=== PATIENT | male | born 1960 | race Caucasian/White ===

== ENCOUNTER 2024-04-23 19:05 | Emergency (ER) | payer OTHER, SELFPAY ==
[2024-04-23] VITALS (21 sets, daily range): BP systolic 101–127; BP diastolic 67–79; PULSE 71–82; TEMP 37.4; O2SAT 89–95; BMI 39.5
--- NOTE | 2024-04-23 19:23 | ECG_ITS ---
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
--- NOTE | 2024-04-23 19:31 | ECG_ITS ---
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 Repeat ECG is requested 9152 abnormal ECG No previous ECG available for comparison
--- NOTE | 2024-04-23 19:32 | ED_ITS ---
HPI HPI - General Adult General Chief complaint: Weakness Stated complaint: general weakness Time Seen by Provider: 04/23/24 19:27 Source: patient Mode of arrival: walk-in Limitations: no limitations History of Present Illness HPI narrative: 63-year-old male presents to the emergency department for feeling weak and dizzy. It started 3 days ago when he was working outside all day doing multiple projects and it was hot outside. He states he was drenched in sweat and since then he has been a bit dizzy. On that day his arms were tingly bilaterally but that has now resolved and has not recurred. No headache chest pain shortness of breath or palpitations or syncope. He is on a diuretic, Lasix. Related Data Home Medications ?Medication ?Instructions ?Recorded ?Confirmed amiodarone 200 mg tablet 200 mg PO DAILY 04/23/24 04/23/24 atorvastatin 80 mg tablet 80 mg PO DAILY 04/23/24 04/23/24 carvedilol 6.25 mg tablet 6.25 mg PO Q12H 04/23/24 04/23/24 clopidogrel 75 mg tablet 75 mg PO DAILY 04/23/24 04/23/24 furosemide 20 mg tablet 20 mg PO DAILY 04/23/24 04/23/24 losartan 50 mg tablet 50 mg PO DAILY 04/23/24 04/23/24 potassium chloride 20 mEq 20 meq PO DAILY 04/23/24 04/23/24 tablet,extended release rivaroxaban 20 mg tablet (Xarelto) 20 mg PO DAILY 04/23/24 04/23/24 Allergies Allergy/AdvReac Type Severity Reaction Status Date / Time No Known Drug Allergies Allergy Verified 04/23/24 19:17 Opioid HPI Opioid Management Most Recent Opioid Data: No Data to Display Review of Systems ROS0 Narrative A ten point review of systems is negative except as noted above. Exam Narrative Exam Narrative: Nurses note and vital signs reviewed and patient is not hypoxic. General: The patient appears in no apparent distress. Patient is resting comfortably on cart. Skin: Warm, dry, no pallor noted. There is no rash noted. Head: Normocephalic, atraumatic Eye: Normal conjunctiva, no drainage Ears, Nose, Mouth, and Throat: oral mucosa is moist. Nares patent. Cardiovascular: Regular Rate and Rhythm Respiratory: Patient is in no distress, no accessory muscle use, lungs are clear to auscultation, no wheezing, rales or rhonchi Back: non-tender GI: Soft and nontender Musculoskeletal: The patient has no evidence of calf tenderness, no pitting edema, symmetrical pulses noted bilaterally Neurological: A&O, normal speech Psychiatric: Cooperative Constitutional Vital Signs, click to edit/add: Last Vital Signs Temp 99.4 F 04/23/24 19:19 Pulse 75 04/23/24 19:19 Resp 20 04/23/24 19:19 BP 115/67 04/23/24 19:19 Pulse Ox 92 L 04/23/24 19:19 O2 Del Method Room Air 04/23/24 19:19 Course Vital Signs Vital signs: Vital Signs Temperature 99.4 F 04/23/24 19:19 Pulse Rate 75 04/23/24 19:19 Respiratory Rate 20 04/23/24 19:19 Blood Pressure 115/67 04/23/24 19:19 Pulse Oximetry 92 L 04/23/24 19:19 Oxygen Delivery Method Room Air 04/23/24 19:19 Temperature 99.4 F 04/23/24 19:19 Pulse Rate 75 04/23/24 19:19 Respiratory Rate 20 04/23/24 19:19 Blood Pressure 115/67 04/23/24 19:19 Pulse Oximetry 92 L 04/23/24 19:19 Oxygen Delivery Method Room Air 04/23/24 19:19 Medical Decision Making MDM Narrative Medical decision making narrative: Troponin is elevated at 18,721. I have spoken to the patient's chef saucier as well as the hospitalist at [facility] and the patient will be transferred there. Since the patient took his Xarelto already today the chef saucier has requested no heparin drip at this point. He was given an aspirin here and continues to be symptom-free other than feeling weak. He has no chest pain or shortness of breath or back pain. Findings are discussed thoroughly with the patient and his family. Differential Diagnosis Differential Diagnosis: Dehydration, ID, NSTEMI, anemia Lab Data Lab results reviewed: Yes I reviewed the patient's lab results Labs: Lab Results 04/23/24 Range/Units 19:36 WBC 9.9 (4.0-11.0) 10^3/uL RBC 4.72 (4.70-6.10) 10^6/uL Hgb 13.8 L (14.0-18.0) g/dL Hct 42.5 (42.0-54.0) % MCV 90.0 (80.0-94.0) fL MCH 29.2 (25.9-34.0) pg MCHC 32.5 (29.9-35.2) g/dL RDW 13.0 (11.0-15.0) % Plt Count 206 (150-450) 10^3/uL MPV 11.3 (9.5-13.5) fL Neut % (Auto) 67.8 (43.0-75.0) % Lymph % (Auto) 17.7 L (20.5-60.0) % Knox % (Auto) 12.7 H (1.7-12.0) % Eos % (Auto) 1.1 (0.9-7.0) % Baso % (Auto) 0.4 (0.2-2.0) % Neut # (Auto) 6.7 H (1.4-6.5) 10^3/uL Lymph # (Auto) 1.8 (1.2-3.8) 10^3/uL Knox # (Auto) 1.3 H (0.3-0.8) 10^3/uL Eos # (Auto) 0.1 (0.0-0.7) 10^3/uL Baso # (Auto) 0.0 (0.0-0.1) 10^3/uL Abs Immat Gran (auto) 0.03 (0.00-0.03) 10^3/uL Imm/Tot Granulo (auto) 0.3 (0.0-0.5) % Sodium 139 (136-145) mmol/L Potassium 3.9 (3.5-5.1) mmol/L Chloride 105 (98-107) mmol/L Carbon Dioxide 27.2 (21.0-32.0) mmol/L Anion Gap 10.7 BUN 22.0 H (7.0-18.0) mg/dL Creatinine 1.51 H (0.70-1.30) mg/dL Est GFR ( Amer) 57 L (>=60) Est GFR (Non-Af Amer) 47 L (>=60) BUN/Creatinine Ratio 14.6 Glucose 108 H (74-106) mg/dL Calcium 8.4 L (8.5-10.1) mg/dL Troponin I High Sens 70518.5 H* (4.0-76.1) pg/mL ECG Data Attestation: I personally reviewed and interpreted this ECG as follows: (EKG on my interpretation shows normal sinus rhythm with a left bundle branch block. The most recent EKG we have for him in the past is from 2019 and at that time he did not have a left bundle branch block.) Critical Care Time Critical Care Time Critical Care Time: Yes Total Critical Care Time: 35 Attestation: Due to the high probability of sudden and clinically significant deterioration in the patient's condition he/she required the highest level of my preparedness to intervene urgently I provided critical care time including documentation time, medication orders and management, reevaluation, vital sign assessment, ordering and reviewing of lab tests, ordering and reviewing of x-ray studies, and admission orders. Aggregate critical care time is 35 minutes including only time during which I was engaged in work directly related to his/her care and did not include time spent treating other patients simultaneously. Discharge Plan Discharge Chief Complaint: Weakness Clinical Impression: Non-ST elevation ID (NSTEMI) Patient Disposition: [facility] Time of Disposition Decision: 20:38 Discharge location: [facility] Condition: [facility] Mode of Transportation: EMS
[2024-04-23 19:43] LABS: Basophils Percent Auto 0.4 % (0.2-2.0); Eosinophils Absolute Auto 0.1 10^3/uL (0.0-0.7); Eosinophils Percent Auto 1.1 % (0.9-7.0); Hematocrit 42.5 % (42.0-54.0); Hemoglobin 13.8 g/dL (14.0-18.0); Immature Granulocytes Abs Auto 0.03 10^3/uL (0.00-0.03); Immature Granulocytes Pct Auto 0.3 % (0.0-0.5); Lymphocytes Absolute Auto 1.8 10^3/uL (1.2-3.8); Lymphocytes Percent Auto 17.7 % (20.5-60.0); Mean Corpuscular HGB Conc 32.5 g/dL (29.9-35.2); Mean Corpuscular Hemoglobin 29.2 pg (25.9-34.0); Mean Platelet Volume 11.3 fL (9.5-13.5); Monocytes Absolute Auto 1.3 10^3/uL (0.3-0.8); Monocytes Percent Auto 12.7 % (1.7-12.0); Neutrophils Absolute Auto 6.7 10^3/uL (1.4-6.5); Neutrophils Percent Auto 67.8 % (43.0-75.0); Platelet Count 206 10^3/uL (150-450); Red Blood Count 4.72 10^6/uL (4.70-6.10); White Blood Count 9.9 10^3/uL (4.0-11.0)
[2024-04-23] MEDS: 0.9 % SODIUM CHLORIDE 500 ML IV (19:44)
[2024-04-23 20:04] LABS: Anion Gap 10.7; BUN Creatinine Ratio 14.6; Calcium 8.4 mg/dL (8.5-10.1); Carbon Dioxide 27.2 mmol/L (21.0-32.0); Chloride 105 mmol/L (98-107); Estimated GFR (African America 57 (>=60); Estimated GFR (Non-African Ame 47 (>=60); Glucose 108 mg/dL (74-106); Potassium 3.9 mmol/L (3.5-5.1); Sodium 139 mmol/L (136-145)
[2024-04-23 20:12] LABS: Troponin I High Sensitivity 18721.5 pg/mL (4.0-76.1)
[2024-04-23] MEDS: ASPIRIN 81 MG TAB.CHEW PO (21:03)
--- NOTE | 2024-04-23 22:35 | PC.NURSE ---
[facility] arrives at this time for transport.
== END 2024-04-23 22:37 | disposition short-term general hospital (02) ==
PROVIDERS: Emergency Provider Emergency Medicine; PCP Nurse Practitioner
DX: I21.4 Non-ST elevation (NSTEMI) myocardial infarction (principal); Z79.899 Other long term (current) drug therapy; Z79.01 Long term (current) use of anticoagulants
CPT/HCPCS: 36415; 80048; 81001; 84484; 85025; 93005; 99285

== ENCOUNTER 2025-07-25 05:39 | Emergency (ER) | payer BC, SELFPAY ==
--- OUTSIDE RECORDS SUMMARY | 2025-07-12 16:30 | XMS_ITS | Encounter Summary ---
Author Organization [facility] Address [address] [place] [address] Care Team Providers Care Program Production Specialist Name Role Phone Maisha Echavarria MD Primary Care Provider Arlen Sanchez NP Unavailable [phone] Areln Sanchez NP Unavailable [phone] Reason for Visit * ReasonCommentsGI Bleeding Encounter Details DateTypeDepartmentCare Team (Latest Contact Info)Bcuyoswedbf82/10/2025 4:30 PM EDTOffice Visit [facility] [address] [place] [phone] Arlen Sanchez NP [address], [place] [id number] Blood in stool (Primary Dx); Diarrhea, unspecified type; Hemorrhoids, unspecified hemorrhoid type Social History Tobacco UseTypesPacks/DayYears UsedDateSmoking Tobacco: FormerCigarsSmokeless Tobacco: Never Tobacco Cessation:Counseling Given: Not Answered Alcohol UseStandard Drinks/WeekCommentsNot Currently1 (1 standard drink = 0.6 oz pure alcohol)PHQ-2AnswerDate RecordedPatient Health Questionnaire-2 Score0 03/01/2025Sex and Gender InformationValueDate RecordedSex Assigned at BirthNot on fileLegal HyjSxmb7810/28/2023 9:45 AM ESTGender IdentityNot on fileSexual OrientationNot on filedocumented as of this encounter Last Filed Vital Signs Vital SignReadingTime TakenCommentsBlood Ediraodz075/8410 3:38 PM EDT Xklpe5507 3:38 PM EDTTemperature--Respiratory Vqyc8873 3:38 PM EDTOxygen Bzjtgrbzfy41%07/12/2025 3:38 PM EDTInhaled Oxygen Concentration-- Alnrvv743 kg (265 lb)07/12/2025 3:38 PM QLTTlldxb570.3 cm (5' 9 )07/12/2025 3:38 PM EDTBody Mass Index39.131 3:38 PM EDTdocumented in this encounter Progress Notes * Arlen Sanchez NP - 07/12/2025 4:30 PM EDT Subjective ?Quick Links Last Note in Specialty Snapshot Edit RFV/CC Edit Screenings Current Meds Patient ID: Aayush Cantu is a 64 y.o. male who presents for GI Bleeding. HPI History of Present Illness The patient presents for evaluation of rectal bleeding. He has been experiencing significant bleeding rectal bleeding for over a month. He reports having hemorrhoids as well. Initially, a cream treatment provided relief of the hemorrhoids for approximately two weeks, but upon discontinuation, the symptoms returned and have persisted. He has been using asalve, but it has not been effective in alleviating the symptoms. Bowel movements have been inconsistent, alternating between normal, solid stools and watery stools with blood. The blood is dark in color and mixed with the stool. He reports no presence of black tarry stools. Over the past few weeks, he has noticed a change in the smell of his stools, describing it as similar to ammonia. He has had accidents in his truck due to an inability to reach a bathroom in time. Stool softeners are taken every other day to manage constipation. He experiences more constipation than diarrhea and often hasto strain during bowel movements, which can sometimes cause a burning sensation. Stools vary in consistency, being liquefied on some days and normal on others. He does not feel ill and reports no abdominal pain. Dietary changes have been made to identify potential triggers for diarrhea, including switching iced tea, milk, and soda brands. He believes the iced tea may be contributing to his symptoms, as switching brands seems to have lessened the severity of his diarrhea. He has not experienced diarrhea for the past four days. Social History: Diet: Switched iced tea, milk, and soda brands to identify potential triggers for diarrhea. Coffee/Tea/Caffeine-containing Drinks: Consumes iced tea. ?Quick Review Review Full History Meds - atorvastatin (Lipitor) 80 MG tablet clopidogrel (Plavix) 75 MG tablet furosemide (Lasix) 40 MG tablet hydrocortisone (Anusol-HC) 2.5 % rectal cream losartan (Cozaar) 50 MG tablet potassium chloride CR (K-Tab) 20 MEQ ER tablet Xarelto 20 MG tablet carvedilol (Coreg) 6.25 MG tablet pramoxine (Proctofoam) 1 % foam --- PMH - Anxiety CAD (coronary artery disease) Clotting disorder ([facility]) DVT (deep venous thrombosis) ([facility]) Hyperlipidemia Hypertension NSTEMI (non-ST elevated myocardial infarction) ([facility]) PE (pulmonary thromboembolism) ([facility]) Objective ?Quick Links Add Vitals Timeline (Adult) Labs Imaging Results Review Trend Vitals ?? Avoid pulling in long tables of results. Comment on relevant results to support your medical decision making. BP 130/84 Pulse 78 Resp 18 Ht 5' 9 Wt 265 lb SpO2 99% BMI 39.13 kg/m?? Physical Exam Vitals and nursing note reviewed. Constitutional: Appearance: Normal appearance. HENT: Head: Normocephalic and atraumatic. Cardiovascular: Rate and Rhythm: Normal rate and regular rhythm. Heart sounds: Normal heart sounds. Pulmonary: Effort: Pulmonary effort is normal. No respiratory distress. Breath sounds: Normal breath sounds. No stridor. No wheezing, rhonchi or rales. Abdominal: General: Bowel sounds are normal. There is no distension. Palpations: Abdomen is soft. There is no mass. Tenderness: There is no abdominal tenderness. Hernia: No hernia is present. Genitourinary: Rectum: External hemorrhoid present. No anal fissure. Skin: General: Skin is warm and dry. Neurological: General: No focal deficit present. Mental Status: He is alert and oriented to person, place, and time. Psychiatric: Mood and Affect: Mood normal. Behavior: Behavior normal. Physical Exam Respiratory: Clear to auscultation, no wheezing, rales or rhonchi Cardiovascular: Regular rate and rhythm, no murmurs, rubs, or gallops Gastrointestinal: Soft, no tenderness, no distention, no masses Genitourinary: External hemorrhoids present, no active bleeding ?Quick Links Full Problem List Cardiology CHF Hypertension Assessment & Plan Blood in stool Orders: CBC and differential; Future Occult blood x 1, stool; Future Referral to Dr. Mccloud, general surgery, will be placed depending on stool specimen. Diarrhea, unspecified type Orders: CBC and differential; Future Comprehensive metabolic panel; Future Hemorrhoids, unspecified hemorrhoid type Orders: pramoxine (Proctofoam) 1 % foam; Insert into the rectum 3 (three) times a day as needed for hemorrhoids for up to 10 days Assessment & Plan 1. Hemorrhoids: - The patient reports blood in the stool, which has been ongoing for over a month. The blood is darker in color, suggesting an internal source. - Physical examination reveals the presence of hemorrhoids, but no active bleeding was noted. - Blood work, including a CBC, will be ordered to check hemoglobin levels. A stool specimen will becollected for further analysis. The possibility of irritable bowel syndrome (IBS) was discussed dueto alternating constipation and diarrhea. - MiraLAX is recommended to alleviate constipation, and Metamucil is suggested to bulk up the stool. Proctofoam will be prescribed for hemorrhoid management. Referral to general surgery for a colonoscopy may be necessary depending on the results of the blood work and stool sample. documented in this encounter Plan of Treatment Not on file documented as of this encounter Procedures Procedure NamePriorityDate/TimeAssociated DiagnosisCommentsOCCULT BLOOD X 1, IOJFXCpcqybx64/14/2025 12:08 PM EDT Blood in stool CBC (INCLUDES DIFF/PLT)Peuphhd4607/12/2025 4:18 PM EDT Blood in stool Diarrhea, unspecified type COMPREHENSIVE METABOLIC TJLMVZnmyzey86/10/2025 4:18 PM EDT Diarrhea, unspecified type documented in this encounter Results * (ABNORMAL) Occult blood x 1, stool (07/16/2025 12:08 PM EDT)ComponentValueRef RangeTest MethodAnalysis TimePerformed AtPathologist SignatureMICRO NUMBER [id number] QUALITYAdequateQUESTSOURCEINSURE (TM) FOBT TEST CARD QUESTSTATUSFINALQUESTFECAL GLOBIN RESULTSEE NOTE(A)QUESTComment: Detected Reference Range:Not Detected COMMENTSEE NOTEQUESTComment: NOTE: Approved collection includes sample of toilet water adjacent to stool. Other methods of collection such as stool transferred from diaper, bedpan, or commode to toilet water may lead to inaccurate results. NO COLLECTION DATE RECEIVED. WE HAVE USED THE DATE THE SPECIMEN WAS RECEIVED BY THIS LABORATORY THE COLLECTION DATE. IF THIS IS INCORRECT, PLEASE CONTACT CLIENT SERVICES. PHONE NUMBER: [phone] Specimen (Source)Anatomical Location / LateralityCollection Method / Volume Collection TimeReceived TimeStoolRectal contents / Xtzeayg3207/15/2025 12:50 PM EDT Narrative Resulting Agency Comment Performing Organization Information ?Site ID: QPT ?Name: [facility] ?Address: [address] [place] [address], [address] [place] [phone] ?Director: Leroy Vo MD Authorizing ProviderResult TypeResult StatusBreann Majors NPLAB BODY FLUIDS AND STOOLS ORDERABLESFinal ResultPerforming OrganizationAddressCity/State/ZIP Code Phone Number [facility] * Comprehensive metabolic panel (07/12/2025 4:18 PM EDT)ComponentValueRef Range Test MethodAnalysis TimePerformed AtPathologist VpurywxxnGfdnzok6130 - 99 mg/dLQUESTComment: ? Fasting reference interval JMG953 - 25 mg/dLQUESTCreatinine1.280.70 - 1.35 mg/vEDQTHRTRCD11> OR = 60 mL/min/1.37r1IJCEYJWW/CREATININE RATIOSEE NOTE: (calc)QUESTComment: ?? Not Reported: BUN and Creatinine are within ?? reference range. ? Rtxgbf110775 - 146 mmol/LQUESTPotassium, Bld4.43.5 - 5.3 mmol/CNCNRKUzoosxwy398 98 - 110 mmol/LQUESTCarbon Mspibcn0822 - 32 mmol/LQUESTCalcium8.88.6 - 10.3 mg/dLQUESTPROTEIN, TOTAL6.96.1 - 8.1 g/dLQUESTALBUMIN4.33.6 - 5.1 g/dLQUEST GLOBULIN2.61.9 - 3.7 g/dL (calc)QUESTALBUMIN/GLOBULIN RATIO1.71.0 - 2.5 (calc) QUESTBILIRUBIN, TOTAL0.50.2 - 1.2 mg/dLQUESTALKALINE TNTILXPUTEW4763 - 144 U/L FEMBFPKE2846 - 35 U/KSAQJNBFI502 - 46 U/LQUESTSpecimen (Source)Anatomical Location / LateralityCollection Method / VolumeCollection TimeReceived TimeBlood Venous blood specimen / Rtifrjm0907/12/2025 4:18 PM EDT1 4:18 PM EDT Narrative [facility] - 07/13/2025 6:21 AM EDT COLLECTION KIT GIVEN TO PATIENT. PATIENT ADVISED TO RETURN. Resulting Agency Comment Performing Organization Information ?Site ID: QPT ?Name: [facility] ?Address: [address] [place] [address], [address] [place] [phone] ?Director: Leroy Vo MD Authorizing ProviderResult TypeResult StatusBreann Majors NPLAB BLOOD ORDERABLES Final ResultPerforming OrganizationAddressCity/State/ZIP CodePhone Number [facility] * (ABNORMAL) CBC and differential (07/12/2025 4:18 PM EDT)ComponentValueRef RangeTest MethodAnalysis TimePerformed AtPathologist SignatureWHITE BLOOD CELL COUNT6.83.8 - 10.8 Thousand/uLQUESTRED BLOOD CELL COUNT4.19(L)4.20 - 5.80 Million/wEPJRGDHRRPHOGRGG64.3(L)13.2 - 17.1 g/sSYXEBXMEZBOSFNPS09.8(L)38.5 - 50.0 %IGEBCPWV16.880.0 - 100.0 yQTNOATSIM13.027.0 - 33.0 ilXMQQOPYRZ47.7(L) 32.0 - 36.0 g/dLQUESTComment: For adults, a slight decrease in the calculated MCHC value (in the range of 30 to 32 g/dL) is most likely not clinically significant; however, it should be interpreted with caution in correlation with other red cell parameters and the patient's clinical condition. RDW13.511.0 - 15.0 %QUESTPLATELET RGCWJ730617 - 400 Thousand/kZTVOEETVX42.17.5 - 12.5 fLQUESTABSOLUTE NEUTROPHILS4,0801,500 - 7,800 cells/uLQUESTABSOLUTE LYMPHOCYTES1,016204 - 3,900 cells/uLQUESTABSOLUTE SKUDKTHMW818138 - 950 cells/uL QUESTABSOLUTE IMNRPUUIGFO42310 - 500 cells/uLQUESTABSOLUTE WLQQZRFRS461 - 200 cells/jELZKQTMNNPUNLVDHH97%HVOYGVYALOHYOCNG42.6%QUESTMONOCYTES9.3%QUEST EOSINOPHILS3.4%QUESTBASOPHILS0.7%QUESTSpecimen (Source)Anatomical Location / LateralityCollection Method / VolumeCollection TimeReceived TimeBloodVenous blood specimen / Tnhopai5707/12/2025 4:18 PM EDT1 4:18 PM EDT Narrative [facility] - 07/13/2025 6:21 AM EDT COLLECTION KIT GIVEN TO PATIENT. PATIENT ADVISED TO RETURN. Resulting Agency Comment Performing Organization Information ?Site ID: QPT ?Name: [facility] ?Address: [address] [place] [phone] ?Director: Leroy Vo MD Authorizing ProviderResult TypeResult StatusBreliat Sanchez NPLAB BLOOD ORDERABLES Final ResultPerforming OrganizationAddressCity/State/[facility] CodePhone Number [facility] documented in this encounter Visit Diagnoses Diagnosis Blood in stool- Primary Diarrhea, unspecified type Hemorrhoids, unspecified hemorrhoid type documented in this encounter Care Teams Team MemberRelationshipSpecialtyStart DateEnd Date Maisha Echavarria MD [address] [place] [address] PCP - GeneralFamily Medicine03/01/25 Arlen Sanchez NP [address] [place] [facility] [place] [address] PCP - [facility]04/02/25 Arlen Sanchez NP [address] [place] [address] Nurse PractitionerFamily [facility]03/01/25documented as of this encounter
[2025-07-25] VITALS (32 sets, daily range): BP systolic 128–140; BP diastolic 67–84; PULSE 62; TEMP 36.6; O2SAT 85–99; BMI 39.5
--- NOTE | 2025-07-25 06:01 | CT_ITS ---
The [address] [address] Patient Name: SO MONGE MRN: [id number] date: 1960 Sex: M Assigned Patient Location: ED.MAIN Current Patient Location: ED.MAIN Accession/Order Number: [id number] Exam Date: 07/25/2025 06:35 Report Date: 07/25/2025 08:47 At the request of: THOMPSON CHASE MD Procedure: CT abdomen pelvis wo con CT ABDOMEN AND PELVIS WITHOUT CONTRAST COMPARISON: None CLINICAL DATA: Right groin pain after patient felt a pop. Spiral images were obtained through the abdomen and pelvis without contrast. This CT exam was performed using one or more following dose reduction techniques: Automated exposure control, adjustment of the mA and/or kV according to patient size, or use of iterative reconstruction technique. Limited cuts through the lung bases show minor atelectasis. The heart is borderline prominent. Assessment of the intra-abdominal organs is slightly limited by the absence of contrast. A small portion of the left lateral abdomen/pelvis is also not included due to patient size. There are calcified stones within the gallbladder lumen. No pericholecystic inflammation is identified. The liver, spleen, pancreas and adrenal glands show no acute findings. There is mild bilateral perinephric fibrofatty stranding. No renal calculi or hydronephrosis are seen. There is mild atherosclerotic plaque at the aorta and iliac arteries. No aneurysms is identified. No enlarged lymph nodes are present. No ascites is seen. The small bowel loops are normal caliber. Mild stool is visualized within the colon, greater on the right. There is subtle thoracolumbar levoscoliotic curvature and multilevel degenerative changes at the spine, greatest at the lower facets. There is also hypertrophy at the SI joints. Images through the pelvis show a tiny umbilical hernia containing fat. There are normal caliber small bowel loops. The appendix is not seen. There is stool at the distal colon. No diverticular disease is identified. The prostate is borderline prominent. No urinary bladder abnormalities are noted. There is a patulous inguinal ring on the right which contains fat. There are small benign-appearing bilateral inguinal lymph nodes. There is no ascites. CT/CT abdomen pelvis wo con IMPRESSION: CHOLELITHIASIS. NO BOWEL OR URINARY TRACT OBSTRUCTION. FAT-CONTAINING RIGHT INGUINAL HERNIA. NO ACUTE FINDINGS. Impression dictated by: Sabrina Kent M.D. 07/25/2025 8:47 AM Dictation Location: [place] [address] Electronically authenticated by: [id number] Y Date: 07/25/2025 08:47
--- NOTE | 2025-07-25 06:05 | ED.GENADUL1 ---
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 The patient states that last Tuesday he was getting out of his semi and twisted his right leg when his boot got caught in the grate/running board of the truck, he states he felt a tingle/pull in his right inguinal area at that time. The next day he and his went for a motorcycle ride. He states he had to spread his legs out pretty wide to get his leg over the bike. Tuesday when he was getting out of his truck he also felt a twinge of pain in the right hip and groin area and felt nauseated at that time. Tonight he was in the shower and felt sudden severe pain in his right inguinal area- describes it as a 'pop'. At this time he has pain in the right medial inguinal area that radiates into his right hip/flank area. He denies any blood in his urine. He is waiting to get a colonoscopy because he recently had blood in his stool. He is on Xarelto. He denies any fall. He has no weakness numbness or tingling. After getting out of the shower today he had to use a walker to ambulate due to the pain. His brought him to the emergency department. He denies any numbness or tingling. The pain is now in his right inguinal area and right testicle. He is not having any nausea or vomiting. Does not have a history of kidney stones. Related Data Home Medications ?Medication ?Instructions ?Recorded ?Confirmed amiodarone 200 mg tablet 200 mg PO DAILY 04/23/24 04/23/24 atorvastatin 80 mg tablet 80 mg PO DAILY 04/23/24 07/25/25 carvedilol 6.25 mg tablet 6.25 mg PO Q12H 04/23/24 07/25/25 clopidogrel 75 mg tablet 75 mg PO DAILY 04/23/24 07/25/25 furosemide 20 mg tablet 20 mg PO DAILY 04/23/24 07/25/25 losartan 50 mg tablet 50 mg PO DAILY 04/23/24 07/25/25 potassium chloride 20 mEq 20 meq PO DAILY 04/23/24 07/25/25 tablet,extended release rivaroxaban 20 mg tablet (Xarelto) 20 mg PO DAILY 04/23/24 07/25/25 Allergies Allergy/AdvReac Type Severity Reaction Status Date / Time No Known Drug Allergies Allergy Verified 07/25/25 05:55 Opioid HPI Opioid Management Most Recent Opioid Data: Last Pain Scale 10 Today, 06:27 Last DEC Pain Assessment Today, 06:27 Review of Systems ROS Status of ROS 10 or more systems reviewed and unremarkable except as noted in history and below PFSH PFSH Social History Little interest or pleasure in doing things: not at all Feeling down, depressed, or hopeless: not at all Exam Narrative Exam Narrative: Vital signs and Nursing Notes reviewed: Patient is afebrile with a normal pulse, normal blood pressure, he is not hypoxic with pulse ox of 97% on room air General: Awake, alert, oriented, overweight male, uncomfortable with any movement, unable to lie back greater than 45 feet due to pain in his right inguinal area and right hip HEENT: Normocephalic atraumatic, mucous membranes are moist and pink, eyes are clear, normal conjunctiva, vision is grossly intact, posterior pharynx is normal in appearance. Neck: Supple, no meningeal signs, no anterior or posterior cervical lymphadenopathy Chest: Lungs are clear to auscultation with good air entry, there is no wheezing rhonchi or rales appreciated no accessory muscle use, patient is speaking in complete sentences-no chest wall tenderness to palpation CVS: Regular rate and rhythm S1-S2, no murmurs rubs or gallops, pulses are brisk and equal bilaterally ABD: Obese, Soft, nondistended, nontender, no rebound guarding or rigidity, bowel sounds are normal :Normal testicular lie, testes non-tender with no erythema or signs of cellulits, tenderness without apprec hernia in right medial inguinal area Extremities:legs lengths are equal, patient can gently flex his knee but this does cause pain in the right inguinal area/hip Skin: Normal in appearance without rash,pallor, petechiae or purpura Neuro: No focal deficits Constitutional Vital Signs, click to edit/add: Last Vital Signs Temp 97.9 F 07/25/25 05:55 Pulse 62 07/25/25 05:55 Resp 18 10/23/25 05:55 BP 133/73 07/25/25 05:55 Pulse Ox 97 07/25/25 05:55 O2 Del Method Room Air 07/25/25 05:55 Course Vital Signs Vital signs: Vital Signs Temperature 97.9 F 07/25/25 05:55 Pulse Rate 62 07/25/25 05:55 Respiratory Rate 18 07/25/25 05:55 Blood Pressure 133/73 07/25/25 05:55 Pulse Oximetry 97 07/25/25 05:55 Oxygen Delivery Method Room Air 07/25/25 05:55 Temperature 97.9 F 07/25/25 05:55 Pulse Rate 62 07/25/25 05:55 Respiratory Rate 18 07/25/25 05:55 Blood Pressure 133/73 07/25/25 05:55 Pulse Oximetry 97 07/25/25 05:55 Oxygen Delivery Method Room Air 07/25/25 05:55 Medical Decision Making MDM Narrative Medical decision making narrative: This 64-year-old male presents for evaluation of right inguinal pain that radiates into the right hip. He had a mild injury last Tuesday when he was getting out of his truck and his boot got caught in his running board on the truck causing a twisting of the right leg. He states he felt a twinge in the right inguinal area at that time. Since then he has been having some ongoing pain but this morning while in the shower he states he had sudden onset of more severe pain and felt a popping sensation in the right inguinal area. His physical exam is benign. He does not have a history of kidney stones. He has not had any urinary symptoms. He did have 1 episode of nausea when getting out of his truck on Tuesday. He does have pain right hip area when I tried to lay the stretcher flat and is unable to fully flex his right leg. My differential diagnosis is right hip fracture, inguinal strain, inguinal hernia or kidney stone. He was medicated emergency department with IV fluids, Zofran and morphine. Routine labs and CT scan of the abdomen pelvis without contrast was ordered. He has a normal CBC with differential and comprehensive metabolic profile. Urine and CT scan are pending at the time of signout. He will be signed out to the incoming physician at 7 AM. Lab Data Labs: Lab Results 07/25/25 Range/Units 06:14 WBC 6.7 (4.0-11.0) 10^3/uL RBC 4.25 L (4.70-6.10) 10^6/uL Hgb 11.2 L (14.0-18.0) g/dL Hct 35.7 L (42.0-54.0) % MCV 84.0 (80.0-94.0) fL MCH 26.4 (25.9-34.0) pg MCHC 31.4 (29.9-35.2) g/dL RDW 13.6 (11.0-15.0) % Plt Count 298 (150-450) 10^3/uL MPV 10.9 (9.5-13.5) fL Neut % (Auto) 65.2 (43.0-75.0) % Lymph % (Auto) 22.1 (20.5-60.0) % Sequoyah % (Auto) 9.2 (1.7-12.0) % Eos % (Auto) 2.5 (0.9-7.0) % Baso % (Auto) 0.7 (0.2-2.0) % Neut # (Auto) 4.4 (1.4-6.5) 10^3/uL Lymph # (Auto) 1.5 (1.2-3.8) 10^3/uL Sequoyah # (Auto) 0.6 (0.3-0.8) 10^3/uL Eos # (Auto) 0.2 (0.0-0.7) 10^3/uL Baso # (Auto) 0.1 (0.0-0.1) 10^3/uL Abs Immat Gran (auto) 0.02 (0.00-0.03) 10^3/uL Imm/Tot Granulo (auto) 0.3 (0.0-0.5) % Sodium 143 (136-145) mmol/L Potassium 4.7 (3.5-5.1) mmol/L Chloride 107 (98-107) mmol/L Carbon Dioxide 28.9 (21.0-32.0) mmol/L Anion Gap 11.8 BUN 23.0 H (7.0-18.0) mg/dL Creatinine 1.25 (0.70-1.30) mg/dL Est GFR ( Amer) >60 (>=60 mL/min/1.73m^2) Est GFR (Non-Af Amer) 58 L (>=60 mL/min/1.73m^2) BUN/Creatinine Ratio 18.4 Glucose 112 H (74-106) mg/dL Calcium 8.5 (8.5-10.1) mg/dL Total Bilirubin 0.4 (0.2-1.0) mg/dL AST 21 (15-37) U/L ALT 24 (16-63) U/L Alkaline Phosphatase 86 (46-116) U/L Total Protein 7.0 (6.4-8.2) g/dL Albumin 3.8 (3.4-5.0) g/dL Globulin 3.2 g/dL Albumin/Globulin Ratio 1.2 Discharge Plan Discharge Patient Disposition: Still a Patient
[2025-07-25 06:23] LABS: Hematocrit 35.7 % (42.0-54.0); Hemoglobin 11.2 g/dL (14.0-18.0); Immature Granulocytes Abs Auto 0.02 10^3/uL (0.00-0.03); Immature Granulocytes Pct Auto 0.3 % (0.0-0.5); Lymphocytes Absolute Auto 1.5 10^3/uL (1.2-3.8); Mean Corpuscular HGB Conc 31.4 g/dL (29.9-35.2); Mean Corpuscular Hemoglobin 26.4 pg (25.9-34.0); Mean Corpuscular Volume 84.0 fL (80.0-94.0); Platelet Count 298 10^3/uL (150-450); Red Blood Count 4.25 10^6/uL (4.70-6.10); White Blood Count 6.7 10^3/uL (4.0-11.0)
[2025-07-25] MEDS: 0.9 % SODIUM CHLORIDE 1,000 ML 125 ML IV (06:27)
[2025-07-25] MEDS: MORPHINE SULFATE 4 MG/ML VIAL IV (06:27)
[2025-07-25 06:38] LABS: Alanine Aminotransferase 24 U/L (16-63); Albumin Globulin Ratio 1.2; Albumin Level 3.8 g/dL (3.4-5.0); Alkaline Phosphatase 86 U/L (46-116); Anion Gap 11.8; Aspartate Amino Transferase 21 U/L (15-37); Blood Urea Nitrogen 23.0 mg/dL (7.0-18.0); Calcium 8.5 mg/dL (8.5-10.1); Carbon Dioxide 28.9 mmol/L (21.0-32.0); Chloride 107 mmol/L (98-107); Estimated GFR (African America >60 (>=60 mL/min/1.73m^2); Estimated GFR (Non-African Ame 58 (>=60 mL/min/1.73m^2); Globulin 3.2 g/dL; Glucose 112 mg/dL (74-106); Potassium 4.7 mmol/L (3.5-5.1); Sodium 143 mmol/L (136-145); Total Protein 7.0 g/dL (6.4-8.2)
--- OUTSIDE RECORDS SUMMARY | 2025-07-25 06:43 | XMS_ITS | Clinical Summary ---
Author Organization [facility] Address [address] [place] [address] Care Team Providers Care Assistant Terminal Manager Name Role Phone Unavailable Primary Care Provider Unavailabl e Social History Tobacco UseTypesPacks/DayYears UsedDateSmoking Tobacco: Never AssessedSex and Gender InformationValueDate RecordedSex Assigned at BirthNot on fileLegal Sex Male03/31/2022 10:17 PM EDTGender IdentityNot on fileSexual OrientationNot on file Plan of Treatment Not on file
--- OUTSIDE RECORDS SUMMARY | 2025-07-25 06:43 | XMS_ITS | Clinical Summary ---
Author Organization [facility] tem Address [id number] [address] [place] [address] Care Team Providers Care Branch Mechanic Name Role Phone Maisha Echavarria MD Primary Care Provider Allergies No known active allergies Medications No known medications Social History Tobacco UseTypesPacks/DayYears UsedDateSmoking Tobacco: FormerSmokeless Tobacco: NeverAlcohol UseStandard Drinks/WeekCommentsYes0 (1 standard drink = 0.6 oz pure alcohol)ChildcareAnswerDate HsjqlhbxTygfbjgnvUdyauwm48/11/2020EmploymentAnswer Date YcvsrkhgLscajffcmuZmjsgeh14/11/2020Purpose - LifeAnswerDate RecordedPurpose and direction in ujnqBqmcgeq74/11/2021Sex and Gender InformationValueDate RecordedSex Assigned at BirthNot on fileLegal SdlHejo3605/06/2015 9:30 PM EDT Gender IdentityNot on fileSexual OrientationNot on file Last Filed Vital Signs Vital SignReadingTime TakenCommentsBlood Eqiilgsr588/9909 8:13 AM EDT Njasf8424 8:13 AM XKDFsydtjozdvc72.8 ??C (98.3 ??F)06/13/2020 8:13 AM EDTRespiratory Wxfi6127 8:13 AM EDTOxygen Wisljrtowl10%06/13/2020 8:13 AM EDTInhaled Oxygen Concentration--Uzvbhj679.4 kg (250 lb)06/13/2020 8:13 AM NLKPiocvf248.7 cm (5' 8 )06/13/2020 8:13 AM EDTBody Mass Index38.01006/13/2020 8:13 AM EDT Plan of Treatment DateTypeDepartmentCare Team (Latest Contact Info)Lthkcaypyns25/07/2025 12:00 PM ESTOffice Visit [facility] [address] [place] [address] Linda Valiente, VEGETABLE SCULLION-FRONT OFFICE ASSISTANT [address] [place] [address] Health MaintenanceDue DateLast DoneCommentsDepression Bcajgyubv41/24/1972Tobacco Pnayyvfqr62/24/1972Adult BMI Rstcnimag18/24/1978DTaP,Tdap and Td Vaccines (1 - Tdap)1978Zoster (Shingles) Vaccine (1 of 2)2009Fall Risk Screening 5COVID-19 Vaccine (3 - 2024- season)509/, 06/08/2021 Influenza Xhkoynu1906/03/2025 Medical Devices Not on file Insurance Care Teams Team MemberRelationshipSpecialtyStart DateEnd Date Maisha Echavarria MD [address], [place] [id number] PCP - [facility] Ipbxdxna07/21/25
--- OUTSIDE RECORDS SUMMARY | 2025-07-25 06:43 | XMS_ITS | Encounter Summary ---
Author Organization [facility] Address [address] [place] [address] Care Team Providers Care Extender Name Role Phone Maisha Echavarria MD Primary Care Provider [phone] Arlen Sandy NP Unavailable [phone] Arlen Sandy NP Unavailable [phone] Reason for Referral * Consultation (Routine) - AuthorizedSpecialtyDiagnoses / ProceduresReferred By ContactReferred To ContactGeneral Surgery Diagnoses Blood in stool Procedures [place] OFFICE/OUTPATIENT [facility] MDM 60 MINUTES Arlen Sandy NP [address] [place] [address] Phone: tel: fax: Jeremiah Mccloud MD [address] [place] [address] Phone: tel: fax: Referral IDStatusReasonStart DateExpiration DateVisits RequestedVisits [id number] Specialty Services Required / Reason for Visit * ReasonOnset TnlzBuepipunQkgipzy53/11/2025 Encounter Details DateTypeDepartmentCare Team (Latest Contact Info)Drwpsewoetx95/11/2025Results Follow-Up [facility] [address] [place] [address] Arlen Sandy NP [address] [place] [address] CBC and differential, Comprehensive metabolic panel, Occult blood x 1, stool Social History Tobacco UseTypesPacks/DayYears UsedDateSmoking Tobacco: FormerCigarsSmokeless Tobacco: NeverAlcohol UseStandard Drinks/WeekCommentsNot Currently1 (1 standard drink = 0.6 oz pure alcohol)PHQ-2AnswerDate RecordedPatient Health Questionnaire-2 Poivg930Sex and Gender InformationValueDate RecordedSex Assigned at BirthNot on fileLegal GksHjwf3510/28/2023 9:45 AM ESTGender Identity Not on fileSexual OrientationNot on filedocumented as of this encounter Miscellaneous Notes * Telephone Encounter - Cony Camargo MA - 07/16/2025 3:44 PM EDT Spoke with patient's and she verbalized understanding. * Telephone Encounter - Cony Camargo MA - 07/16/2025 3:44 PM EDT ----- Message from Arlen Sandy sent at 07/16/2025 2:27 PM EDT ----- Blood in stool detected. Referral to Dr. Mccloud, general surgery, has been placed. ----- Message ----- From: Louie Velazquez Lab Results In Sent: 07/13/2025 6:24 AM EDT To: Arlen Sandy NP * Addendum Note - Arlen Sandy NP - 07/16/2025 2:27 PM EDTAddended by: ARLEN SANDY on: 07/16/2025 02:27 PM Modules accepted: Orders * Telephone Encounter - Cony Camargo MA - 07/13/2025 9:31 AM EDT Spoke with patient's and she verbalized understanding. * Telephone Encounter - Cony Camargo MA - 07/13/2025 9:30 AM EDT ----- Message from Arlen Sandy sent at 07/13/2025 9:24 AM EDT ----- Hemoglobin is slightly low, awaiting stool specimen to assess for occult blood. ----- Message ----- From: SYLOB Lab Results In Sent: 07/13/2025 6:24 AM EDT To: Arlen Sandy NP documented in this encounter Plan of Treatment NameTypePriorityAssociated DiagnosesOrder ScheduleAmbulatory referral to General SurgeryOutpatient ReferralRoutine Blood in stool Expected: 07/16/2025 (Approximate), Expires: 01/14/2026documented as of this encounter Visit Diagnoses Diagnosis Blood in stool- Primary documented in this encounter Care Teams Team MemberRelationshipSpecialtyStart DateEnd Date Maisha Echavarria MD [address] [place] [address] PCP - GeneralFamily Medicine03/01/25 Arlen Sandy NP [address] [place] [address] PCP - Kenyatta Vargas04/02/25 Arlen Sandy NP [address] [facility] [address] [facility] [address] Nurse PractitionerFamily Medicine03/01/25documented as of this encounter
--- OUTSIDE RECORDS SUMMARY | 2025-07-25 06:43 | XMS_ITS | Encounter Summary ---
Author Organization [facility] Address [address] [place] [address] Care Team Providers Care Trim Die Maker Name Role Phone Maisha Echavarria MD Primary Care Provider [phone] MajorArlen painter BUNDLE COLLECTOR Unavailable [phone] Arlen Sanchez BUNDLE COLLECTOR Unavailable [phone] Encounter Details DateTypeDepartmentCare Team (Latest Contact Info)Roxzogkysau23/15/2025Telephone [facility] [address] [place] [address] Maisha Echavarria MD [address] [place], [place] [address] Social History Tobacco UseTypesPacks/DayYears UsedDateSmoking Tobacco: FormerCigarsSmokeless Tobacco: NeverAlcohol UseStandard Drinks/WeekCommentsNot Currently1 (1 standard drink = 0.6 oz pure alcohol)PHQ-2AnswerDate RecordedPatient Health Questionnaire-2 Avggt394Sex and Gender InformationValueDate RecordedSex Assigned at BirthNot on fileLegal KtsLudf0710/28/2023 9:45 AM ESTGender Identity Not on fileSexual OrientationNot on filedocumented as of this encounter Miscellaneous Notes * Telephone Encounter - Svitlana Willams MA - 07/17/2025 6:07 PM EDT Already had there phone number, will call tomorrow. * Telephone Encounter - Cary Bella - 07/17/2025 11:40 AM EDT Patient was seen Tuesday and has been referred to Dr. Mccloud. Last night he had diarrhea all night long. Today he feels very gassy. He did not go to work. Rowan is wondering if you can get him into Dr. Mccloud quicker? Please advise Rowan [phone]. Thank you. documented in this encounter Plan of Treatment Not on file documented as of this encounter Visit Diagnoses Not on filedocumented in this encounter Care Teams Team MemberRelationshipSpecialtyStart DateEnd Date Maisha Echavarria MD [address] [place] [address] PCP - GeneralFamily Medicine03/01/25 Arlen Sanchez NP [address] [place] [address] PCP - Kenyatta Vargas04/02/25 Arlen Sanchez NP [address] [place] [address] Nurse PractitionerFamily Medicine03/01/25documented as of this encounter
--- OUTSIDE RECORDS SUMMARY | 2025-07-25 06:43 | XMS_ITS | Clinical Summary ---
Author Organization [facility] Healthcare Address [address] [place] [address] Care Team Providers Care Manager Vehicle Name Role Phone Maisha Echavarria MD Primary Care Provider [phone] MajorArlen painter NP Unavailable [phone] MajorArlen painter NP Unavailable [phone] Allergies No known active allergies Medications MedicationSigDispense QuantityRefillsLast FilledStart DateEnd DateStatus atorvastatin (Lipitor) 80 MG tablet Take 80 mg by mouth Daily5Active carvedilol (Coreg) 6.25 MG tablet Take 6.25 mg by mouth in the morning and 6.25 mg before bedtime.5Active clopidogrel (Plavix) 75 MG tablet Take 75 mg by mouth Daily5Active furosemide (Lasix) 40 MG tablet Take 40 mg by mouth Daily5Active losartan (Cozaar) 50 MG tablet Take 50 mg by mouth Daily5Active potassium chloride CR (K-Tab) 20 MEQ ER tablet Take 20 mEq by mouth Daily5Active Xarelto 20 MG tablet Take 20 mg by mouth 1 (one) time each day5Active hydrocortisone (Anusol-HC) 2.5 % rectal cream Indications:Hemorrhoids, unspecified hemorrhoid typeInsert into the rectum 4 (four) times a day as needed for hemorrhoids (rectal discomfort) Apply to a ffected areas 30 g /30/2026Active pramoxine (Proctofoam) 1 % foam Indications:Hemorrhoids, unspecified hemorrhoid typeInsert into the rectum 3 (three) times a day as needed for hemorrhoids for up to 10 days 15 g Expired Active Problems ProblemNoted DateDiagnosed DateCAD (coronary artery disease)03/01/2025HTN (hypertension)03/01/20253209Ejpdzjktvarrms18/30/2025 Encounters DateTypeDepartmentCare QjjjTiykmyljpxp02/15/2025Telephone [facility] [address] [place] [phone] Maisha Echavarria MD 07/13/2025Results Follow-Up [place] [place] [address] Arlen Sanchez NP CBC and differential, Comprehensive metabolic panel, Occult blood x 1, stool 07/12/2025 4:30 PM EDTOffice Visit [place] [address] [place] [address] Arlen Sanchez NP Blood in stool (Primary Dx); Diarrhea, unspecified type; Hemorrhoids, unspecified hemorrhoid type07/12/2025amboo flowsheet [facility] [address] [place] [address] Arlen Sanchez NP 07/12/2025Travelfrom Last 3 Months Immunizations ImmunizationAdministration DatesNext DuePfizer Purple Cap SARS-CoV-2 Vaccination 06/29/2021,06/08/2021 Family History Medical HistoryRelationNameCommentsCancerFatherHeart attackFatherStrokeFather CancerMotherNo Known ProblemsSister 1No Known ProblemsSister 2RelationNameStatus CommentsFatherMotherSister 1AliveSister 2Alive Social History Tobacco UseTypesPacks/DayYears UsedDateSmoking Tobacco: FormerCigarsSmokeless Tobacco: Never Tobacco Cessation:Counseling Given: Not Answered Alcohol UseStandard Drinks/WeekCommentsNot Currently1 (1 standard drink = 0.6 oz pure alcohol)PHQ-2AnswerDate RecordedPatient Health Questionnaire-2 Score0 03/01/2025Sex and Gender InformationValueDate RecordedSex Assigned at BirthNot on fileLegal PdaPwmm7010/28/2023 9:45 AM ESTGender IdentityNot on fileSexual OrientationNot on file Last Filed Vital Signs Vital SignReadingTime TakenCommentsBlood Awhwfoyq414/8407/12/2025 3:38 PM EDT Olpre317907/12/2025 3:38 PM ULUXuucybuunqo72.1 ??C (98.8 ??F)03/26/2025 10:09 AM EDTRespiratory Uhds8807 3:38 PM EDTOxygen Ivtqyrsnqh29%07/12/2025 3:38 PM EDTInhaled Oxygen Concentration--Fuhszz089 kg (265 lb)07/12/2025 3:38 PM EDT Vqbktu859.3 cm (5' 9 )07/12/2025 3:38 PM EDTBody Mass Index39.131 3:38 PM EDT Plan of Treatment Health MaintenanceDue DateLast DoneCommentsCT Srbsnkeebopo86/24/1960Colonoscopy 1959FIT-DNA1959FIT6956Bixjhdrbxcwpl04/24/1960Pneumococcal Vaccine: 65+ Years (1 of 2 - PCV)1978Influenza Vaccine (#1)2025 Colorectal Cancer Cgfdhsmxp93/14/8912FJGU86/14/232311 Procedures Procedure NamePriorityDate/TimeAssociated DiagnosisCommentsOCCULT BLOOD X 1, JOEHWThkvyfi69/14/2025 12:08 PM EDT Blood in stool COMPREHENSIVE METABOLIC CWSNXLptmlpv16/10/2025 4:18 PM EDT Diarrhea, unspecified type CBC (INCLUDES DIFF/PLT)Wnnjtav9507/12/2025 4:18 PM EDT Blood in stool Diarrhea, unspecified type from Last 3 Months Results * (ABNORMAL) Occult blood x 1, stool (07/16/2025 12:08 PM EDT)ComponentValueRef RangeTest MethodAnalysis TimePerformed AtPathologist SignatureMICRO NUMBER [id number] QUALITYAdequateQUESTSOURCEINSURE (TM) FOBT TEST CARD QUESTSTATUSFINALQUESTFECAL GLOBIN [...] INCORRECT, PLEASE CONTACT CLIENT SERVICES. PHONE NUMBER: [phone] Specimen (Source)Anatomical Location / LateralityCollection Method / Volume Collection TimeReceived TimeStoolRectal contents / Lavbvoh1707/15/2025 12:50 PM EDT Narrative Resulting Agency Comment Performing Organization Information ?Site ID: QPT ?Name: [facility] ?Address: [address] [place] [phone] ?Director: Leroy Vo MD Authorizing ProviderResult TypeResult StatusBreann Majors NPLAB BODY FLUIDS AND STOOLS ORDERABLESFinal ResultPerforming OrganizationAddressCity/State/ZIP Code Phone Number [facility] * (ABNORMAL) CBC and differential (07/12/2025 4:18 PM EDT)ComponentValueRef RangeTest MethodAnalysis TimePerformed AtPathologist SignatureWHITE BLOOD CELL COUNT6.83.8 - 10.8 Thousand/uLQUESTRED BLOOD CELL COUNT4.19(L)4.20 - 5.80 Million/pRBQKCZEWYWTNBJMB35.3(L)13.2 - 17.1 g/vGIBGGBBVKHGBQLWU89.8(L)38.5 - 50.0 %MBQJJIGR85.880.0 - 100.0 mDQHKIUFDQ56.027.0 - 33.0 uoKYIWLTGWI19.7(L) 32.0 - 36.0 g/dLQUESTComment: For adults, a slight decrease in the calculated MCHC value (in the range of 30 to 32 g/dL) is most likely not clinically significant; however, it should be interpreted with caution in correlation with other red cell parameters and the patient's clinical condition. RDW13.511.0 - 15.0 %QUESTPLATELET RODBW856244 - 400 Thousand/cNCYTYRROI55.17.5 - 12.5 fLQUESTABSOLUTE NEUTROPHILS4,0801,500 - 7,800 cells/uLQUESTABSOLUTE LYMPHOCYTES1,511366 - 3,900 cells/uLQUESTABSOLUTE WAOPRHDLS685531 - 950 cells/uL QUESTABSOLUTE HLWWZPUBSDO82853 - 500 cells/uLQUESTABSOLUTE XWDTZGFZZ301 - 200 cells/xBGFTBDMSCVUKFIETV79%MDEVABTCNAJQVAQN37.6%QUESTMONOCYTES9.3%QUEST EOSINOPHILS3.4%QUESTBASOPHILS0.7%QUESTSpecimen (Source)Anatomical Location / LateralityCollection Method / VolumeCollection TimeReceived TimeBloodVenous blood specimen / Hjvxxkb1607/12/2025 4:18 PM EDT1 4:18 PM EDT Narrative [facility] - 07/13/2025 6:21 AM EDT COLLECTION KIT GIVEN TO PATIENT. PATIENT ADVISED TO RETURN. Resulting Agency Comment Performing Organization Information ?Site ID: QPT ?Name: [facility] ?Address: [address] [place] [address], [address] [place] [phone] ?Director: Leroy Vo MD Authorizing ProviderResult TypeResult StatusBreann Majors NPLAB BLOOD ORDERABLES Final ResultPerforming OrganizationAddressCity/State/ZIP CodePhone Number [facility] * Comprehensive metabolic panel (07/12/2025 4:18 PM EDT)ComponentValueRef Range Test MethodAnalysis TimePerformed AtPathologist XixqqrfdwPhdnkid6640 - 99 mg/dLQUESTComment: ? Fasting reference interval SLT873 - 25 mg/dLQUESTCreatinine1.280.70 - 1.35 mg/xXJMBWWMTRJ95> OR = 60 mL/min/1.55b0LFFPDENR/CREATININE RATIOSEE NOTE: (calc)QUESTComment: ?? Not Reported: BUN and Creatinine are within ?? reference range. ? Yigknn921503 - 146 mmol/LQUESTPotassium, Bld4.43.5 - 5.3 mmol/TNAFEPDxyvklxi502 98 - 110 mmol/LQUESTCarbon Bkwjmdy7778 - 32 mmol/LQUESTCalcium8.88.6 - 10.3 mg/dLQUESTPROTEIN, TOTAL6.96.1 - 8.1 g/dLQUESTALBUMIN4.33.6 - 5.1 g/dLQUEST GLOBULIN2.61.9 - 3.7 g/dL (calc)QUESTALBUMIN/GLOBULIN RATIO1.71.0 - 2.5 (calc) QUESTBILIRUBIN, TOTAL0.50.2 - 1.2 mg/dLQUESTALKALINE IIWGQLGWFEP3677 - 144 U/L MPSSSFMZ4884 - 35 U/RLNZHHMJL843 - 46 U/LQUESTSpecimen (Source)Anatomical Location / LateralityCollection Method / VolumeCollection TimeReceived TimeBlood Venous blood specimen / Cfdlbcg9207/12/2025 4:18 PM EDT1 4:18 PM EDT Narrative [facility] - 07/13/2025 6:21 AM EDT COLLECTION KIT GIVEN TO PATIENT. PATIENT ADVISED TO RETURN. Resulting Agency Comment Performing Organization Information ?Site ID: QPT ?Name: [facility] ?Address: [address] [place] [phone] ?Director: Leroy Vo MD Authorizing ProviderResult TypeResult StatusBreann Majors NPLAB BLOOD ORDERABLES Final ResultPerforming OrganizationAddressCity/State/ZIP CodePhone Number [facility] from Last 3 Months Insurance Care Teams Team MemberRelationshipSpecialtyStart DateEnd Date Maisha Echavarria MD [address] [facility] [place], [place] [id number] [facility] - [facility] Arlen Sanchez NP [address] [facility] [place] [address] PCP - [facility]04/02/25 Arlen Sanchez NP [address] [facility] [place] [address] Nurse Pract[facility]erFar[facility] Medicine03/01/25
--- OUTSIDE RECORDS SUMMARY | 2025-07-25 06:43 | XMS_ITS | Encounter Summary ---
Author Organization [facility] Address [address] [facility] [place] [address] Care Team Providers Care Cyber Security Systems Engineer Name Role Phone Maisha Echavarria MD Primary Care Provider [phone] Arlen Sanchez NP Unavailable [phone] Arlen Sanchez NP Unavailable [phone] Encounter Details DateTypeDepartmentCare Team (Latest Contact Info)Gycxpfyspah58/10/2025amboo flowsheet [facility] [address] [place] [address] Arlen Sanchez NP [address], [place] [id number] Social History Tobacco UseTypesPacks/DayYears UsedDateSmoking Tobacco: FormerCigarsSmokeless Tobacco: NeverAlcohol UseStandard Drinks/WeekCommentsNot Currently1 (1 standard drink = 0.6 oz pure alcohol)PHQ-2AnswerDate RecordedPatient Health Questionnaire-2 Leiuv211Sex and Gender InformationValueDate RecordedSex Assigned at BirthNot on fileLegal CcdUzig4310/28/2023 9:45 AM ESTGender Identity Not on fileSexual OrientationNot on filedocumented as of this encounter Plan of Treatment Not on file documented as of this encounter Visit Diagnoses Not on filedocumented in this encounter Care Teams Team MemberRelationshipSpecialtyStart DateEnd Date Maisha Echavarria MD [address] [facility] [place], [place] [phone] PCP - GeneralFamily Medicine03/01/25 Arlen Sanchez NP [address] [facility] [place], [place] [phone] [facility] Arlen Sanchez NP [address] [place], [place] [phone] Nurse PractitionerFamily Medicine03/01/25documented as of this encounter
--- OUTSIDE RECORDS SUMMARY | 2025-07-25 06:43 | XMS_ITS | Encounter Summary ---
Author Organization [facility] Address [address] [place] [address] Care Team Providers Care Training Project Manager Name Role Phone Maisha Echavarria MD Primary Care Provider [phone] Arlen Sanchez NP Unavailable [phone] Arlen Sanchez NP Unavailable [phone] Encounter Details DateTypeDepartmentCare Team (Latest Contact Info)Tedzmgmbgva44/10/2025Travel Social History Tobacco UseTypesPacks/DayYears UsedDateSmoking Tobacco: FormerCigarsSmokeless Tobacco: NeverAlcohol UseStandard Drinks/WeekCommentsNot Currently1 (1 standard drink = 0.6 oz pure alcohol)PHQ-2AnswerDate RecordedPatient Health Questionnaire-2 Kvlen857Sex and Gender InformationValueDate RecordedSex Assigned at BirthNot on fileLegal BdqXwhr3310/28/2023 9:45 AM ESTGender Identity Not on fileSexual OrientationNot on filedocumented as of this encounter Plan of Treatment Not on file documented as of this encounter Visit Diagnoses Not on filedocumented in this encounter Care Teams Team MemberRelationshipSpecialtyStart DateEnd Date Maisha Echavarria MD [address] [place] [address] PCP - GeneralFamily Medicine03/01/25 Arlen Sanchez NP [address] [place], [place] [phone] PCP - [facility] Vargas04/02/25 Arlen Sanchez NP [address] [place] [address] Nurse PractitionerFamily Medicine03/01/25documented as of this encounter
--- OUTSIDE RECORDS SUMMARY | 2025-07-25 06:43 | XMS_ITS | Clinical Summary ---
Author Organization [facility] Address [address] [place] [address] Phone Care Team Providers Care Sign Shop Supervisor Name Role Phone Unavailable Primary Care Provider Unavailabl e Social History Tobacco UseTypesPacks/DayYears UsedDateSmoking Tobacco: Never AssessedSex and Gender InformationValueDate RecordedSex Assigned at BirthNot on fileLegal Sex Male08/27/2022 4:24 PM ESTGender IdentityNot on fileSexual OrientationNot on file Last Filed Vital Signs Vital SignReadingTime TakenCommentsBlood Pressure--Pulse--Temperature-- Respiratory Rate--Oxygen Saturation--Inhaled Oxygen Concentration--Zqgyyd228 kg (261 lb 14.5 oz)06/28/2022 11:16 AM WOWZpogxq263.5 cm (5' 7.91 )06/28/2022 11:16 AM EDTBody Mass Index39.9209 11:16 AM EDT Plan of Treatment Health MaintenanceDue DateLast DoneCommentsCT Xslijypkkoys34/24/1960Colonoscopy 1959Colorectal Cancer Mtnggrzal27/24/1960FIT-DNA (Cologuard)1959FIT 1959Lipid Panel1959 7250Rozgplainvltj81/24/1960Yearly Adult Physical 1959MMR Vaccines (1 of 1 - Standard series)1960Hepatitis C Screening 1977DTaP/Tdap/Td Vaccines (1 - Tdap)1981PSA Prostate Cancer Ayruenfyz22/24/2010Pneumococcal Vaccine (1 of 1 - PCV)2009Zoster Vaccines (1 of 2)2009Influenza Vaccine (#1)5COVID-19 Vaccine (2024- season)2025RSV High Risk: (Elderly (60+) or Population) (1 - 1- dose 75+ series)2034HIB VaccinesAged OutNo longer eligible based on patient's age to complete this topicHPV VaccinesAged OutNo longer eligible based on patient's age to complete this topicHepatitis A VaccinesAged OutNo longer eligible based on patient's age to complete this topicHepatitis B VaccinesAged OutNo longer eligible based on patient's age to complete this topicIPV Vaccines Aged OutNo longer eligible based on patient's age to complete this topic Meningococcal VaccineAged OutNo longer eligible based on patient's age to complete this topicRotavirus VaccinesAged OutNo longer eligible based on patient's age to complete this topic Insurance
--- NOTE | 2025-07-25 09:34 | ED.GENADUL1 ---
HPI HPI - General Adult General Chief complaint: Back Pain/Injury Stated complaint: R SIDED GROIN & BACK PAIN Time Seen by Provider: 07/25/25 05:51 Source: patient Mode of arrival: Wheelchair Limitations: no limitations History of Present Illness HPI narrative: 64-year-old male presented to the emergency department and was initially seen by Dr. Ritchie. Please see her full history and physical exam. Related Data Home Medications ?Medication ?Instructions ?Recorded ?Confirmed amiodarone 200 mg tablet 200 mg PO DAILY 04/23/24 04/23/24 atorvastatin 80 mg tablet 80 mg PO DAILY 04/23/24 07/25/25 carvedilol 6.25 mg tablet 6.25 mg PO Q12H 04/23/24 07/25/25 clopidogrel 75 mg tablet 75 mg PO DAILY 04/23/24 07/25/25 furosemide 20 mg tablet 20 mg PO DAILY 04/23/24 07/25/25 losartan 50 mg tablet 50 mg PO DAILY 04/23/24 07/25/25 potassium chloride 20 mEq 20 meq PO DAILY 04/23/24 07/25/25 tablet,extended release rivaroxaban 20 mg tablet (Xarelto) 20 mg PO DAILY 04/23/24 07/25/25 Previous Rx's ?Medication ?Instructions ?Recorded hydrocodone 5 mg-acetaminophen 325 1 tab PO Q6H PRN pain 5 days #20 07/25/25 mg tablet tabs Allergies Allergy/AdvReac Type Severity Reaction Status Date / Time No Known Drug Allergies Allergy Verified 07/25/25 05:55 Opioid HPI Opioid Management Most Recent Opioid Data: Last Pain Scale 10 Today, 06:27 Last MAR Pain Assessment Today, 06:27 PFSH PFSH Social History Little interest or pleasure in doing things: not at all Feeling down, depressed, or hopeless: not at all Exam Constitutional Vital Signs, click to edit/add: Last Vital Signs Temp 97.9 F 07/25/25 05:55 Pulse 62 07/25/25 05:55 Resp 18 07/25/25 05:55 BP 133/73 07/25/25 05:55 Pulse Ox 97 07/25/25 05:55 O2 Del Method Room Air 07/25/25 05:55 Course Vital Signs Vital signs: Vital Signs Temperature 97.9 F 07/25/25 05:55 Pulse Rate 62 07/25/25 05:55 Respiratory Rate 18 07/25/25 05:55 Blood Pressure 133/73 07/25/25 05:55 Pulse Oximetry 97 07/25/25 05:55 Oxygen Delivery Method Room Air 07/25/25 05:55 Temperature 97.9 F 07/25/25 05:55 Pulse Rate 62 07/25/25 05:55 Respiratory Rate 18 07/25/25 05:55 Blood Pressure 133/73 07/25/25 05:55 Pulse Oximetry 97 07/25/25 05:55 Oxygen Delivery Method Room Air 07/25/25 05:55 Medical Decision Making MDM Narrative Medical decision making narrative: CT scan per radiologist shows no acute findings. Examination by me at 9:30 AM shows no testicular tenderness or swelling. He has tenderness in the medial inguinal region. There are no masses. My clinical impression at this point is that he has a groin strain. He was prescribed Denbo and was recommended rest and ice. He was given a note to be off of work for today and tomorrow as well. Treatment diagnosis and follow-up were discussed with the patient and his . Lab Data Lab results reviewed: Yes I reviewed the patient's lab results Labs: Lab Results 07/25/25 Range/Units 06:14 WBC 6.7 (4.0-11.0) 10^3/uL RBC 4.25 L (4.70-6.10) 10^6/uL Hgb 11.2 L (14.0-18.0) g/dL Hct 35.7 L (42.0-54.0) % MCV 84.0 (80.0-94.0) fL MCH 26.4 (25.9-34.0) pg MCHC 31.4 (29.9-35.2) g/dL RDW 13.6 (11.0-15.0) % Plt Count 298 (150-450) 10^3/uL MPV 10.9 (9.5-13.5) fL Neut % (Auto) 65.2 (43.0-75.0) % Lymph % (Auto) 22.1 (20.5-60.0) % [place] % (Auto) 9.2 (1.7-12.0) % Eos % (Auto) 2.5 (0.9-7.0) % Baso % (Auto) 0.7 (0.2-2.0) % Neut # (Auto) 4.4 (1.4-6.5) 10^3/uL Lymph # (Auto) 1.5 (1.2-3.8) 10^3/uL [place] # (Auto) 0.6 (0.3-0.8) 10^3/uL Eos # (Auto) 0.2 (0.0-0.7) 10^3/uL Baso # (Auto) 0.1 (0.0-0.1) 10^3/uL Abs Immat Gran (auto) 0.02 (0.00-0.03) 10^3/uL Imm/Tot Granulo (auto) 0.3 (0.0-0.5) % Sodium 143 (136-145) mmol/L Potassium 4.7 (3.5-5.1) mmol/L Chloride 107 (98-107) mmol/L Carbon Dioxide 28.9 (21.0-32.0) mmol/L Anion Gap 11.8 BUN 23.0 H (7.0-18.0) mg/dL Creatinine 1.25 (0.70-1.30) mg/dL Est GFR ( Amer) >60 (>=60 mL/min/1.73m^2) Est GFR (Non-Af Amer) 58 L (>=60 mL/min/1.73m^2) BUN/Creatinine Ratio 18.4 Glucose 112 H (74-106) mg/dL Calcium 8.5 (8.5-10.1) mg/dL Total Bilirubin 0.4 (0.2-1.0) mg/dL AST 21 (15-37) U/L ALT 24 (16-63) U/L Alkaline Phosphatase 86 (46-116) U/L Total Protein 7.0 (6.4-8.2) g/dL Albumin 3.8 (3.4-5.0) g/dL Globulin 3.2 g/dL Albumin/Globulin Ratio 1.[address] scan - abdomen: Radiologist's impression: ITS Impressions Abdomen/Pelvis CT 07/25/25 06:01 IMPRESSION: CHOLELITHIASIS. NO BOWEL OR URINARY TRACT OBSTRUCTION. FAT-CONTAINING RIGHT INGUINAL HERNIA. NO ACUTE FINDINGS. Impression dictated by: Sabrina Kent M.D. 07/25/2025 8:47 AM Dictation Location: [place] [address] Electronically authenticated by: [id number] Y Date: 07/25/2025 08:47 Discharge Plan Discharge Chief Complaint: Back Pain/Injury Clinical Impression: Strain of right groin Patient Disposition: Home, Self-Care Time of Disposition Decision: 09:32 Mode of Transportation: Private Vehicle Prescriptions / Home Meds: New hydrocodone-acetaminophen 5-325 mg tablet 1 tab PO Q6H PRN (Reason: pain) 5 Days Qty: 20 0RF No Action amiodarone 200 mg tablet 200 mg PO DAILY atorvastatin 80 mg tablet 80 mg PO DAILY carvedilol 6.25 mg tablet 6.25 mg PO Q12H clopidogrel 75 mg tablet 75 mg PO DAILY furosemide 20 mg tablet 20 mg PO DAILY losartan 50 mg tablet 50 mg PO DAILY potassium chloride 20 mEq tablet extended release 20 meq PO DAILY Xarelto 20 mg tablet 20 mg PO DAILY Print Language: Malay Instructions: Groin Strain (ED)
== END 2025-07-25 10:01 | disposition home or self-care (01) ==
PROVIDERS: Emergency Medicine; Emergency Provider Emergency Medicine
DX: S39.011A Strain of muscle, fascia and tendon of abdomen, initial encounter (principal); X50.1XXA Overexertion from prolonged static or awkward postures, initial encounter; Z79.01 Long term (current) use of anticoagulants
CPT/HCPCS: 36415; 74176; 80053; 81001; 85025; 96374; 96375; 99284; J2270; J2405